=== PATIENT | female | born 1985 | race Caucasian/White ===

== ENCOUNTER 2017-02-12 19:42 | Emergency (ER) | payer OTHER ==
[2017-02-12 19:57] VITALS: BP 131/82
--- NOTE | 2017-02-12 20:57 | ED Physician Documentation ---
PD HPI UPPER EXT INJURY - Stated complaint Stated Complaint: RT ARM PX - Chief complaint Chief Complaint: Trauma Ext - History of Present Illness Location: Right, Arm Type of injury: Other (pushups) Where injury occurred: Home Timing - onset: How many days ago (4) Timing - details: Gradual onset, Now resolved Worsened by: Moving, Palpating Associated symptoms: Swelling. No: Weakness, Numbness Contributing factors: No: Anticoagulated, Prior ortho surgery, Prosthetic joint Similar symptoms before: Work up / diagnostics, Treatment Recently seen: Clinic - Additonal information Additional information: Patient is a 31 year old female with no significant past medical history who is presenting to the emergency department for left arm tenderness and swelling. paitent states that last week she was doing PT with the [employer] and developed swelling in her hand. patient states that her symptoms got better, but then came back after a run. Patient went to the clinic on buase who sent the patient to the emergency department. Upon my initial evaluation in the emergency department patient's symptoms had resolved and patient denied any complaints. Review of Systems Constitutional: denies: Fever, Chills Eyes: denies: Loss of vision, Photophobia Ears: denies: Ear pain, Drainage/discharge Nose: denies: Congestion, Epistaxis Throat: denies: Oral lesions / sores, Sore throat Cardiac: denies: Chest pain / pressure, Palpitations, Pedal edema Respiratory: denies: Cough, Wheezing GI: denies: Nausea, Vomiting Skin: denies: Rash, Lesions, Abrasion (s), Laceration (s) Musculoskeletal: reports: Extremity pain, Extremity swelling. denies: Neck pain Neurologic: denies: Generalized weakness, Focal weakness, Numbness Immunocompromised: denies: Immunocompromised PD PAST MEDICAL HISTORY - Past Medical History Past Medical History: No - Past Surgical History Past Surgical History: No - Present Medications Home Medications: Ambulatory Orders Medication Instructions Recorded Confirmed Dextroamphetamine/Amphetamine 20 mg PO DAILY 02/12/17 02/12/17 [Adderall 20 mg Tablet] - Allergies Allergies/Adverse Reactions: Allergies Allergy/AdvReac Type Severity Reaction Status Date / Time No Known Drug Allergies Allergy Verified 02/12/17 19:57 - Social History Does the pt smoke?: No Smoking Status: Never smoker Does the pt drink ETOH?: No Does the pt have substance abuse?: No - Immunizations Immunizations are current?: Yes PD ED PE NORMAL - Vitals Vital signs reviewed: Yes - General General: Alert and oriented X 3, No acute distress - HEENT HEENT: Atraumatic, PERRL - Neck Neck: Supple, no meningeal sign - Cardiac Cardiac: RRR, No murmur - Respiratory Respiratory: No respiratory distress - Abdomen Abdomen: Soft, Non tender, Non distended - Derm Derm: Normal color, Warm and dry - Extremities Extremities: No deformity, No tenderness to palpate, No edema - Neuro Neuro: Alert and oriented X 3, No motor deficit, No sensory deficit, Normal speech - Psych Psych: Normal mood, Normal affect Results - Vitals Vitals: Vital Signs - 24 hr 02/12/17 19:52 Temperature 36.8 C Heart Rate 82 Respiratory 18 Rate Blood Pressure 131/82 H O2 Saturation 100 Oxygen O2 Source Room air PD MEDICAL DECISION MAKING - ED course Complexity details: re-evaluated patient, considered differential, d/w patient ED course: Patient was seen and examined at bedside. patient was well appearing and in no distress. Patient required no imaging at this time. Patient had no signs or symptoms or risk factors for thromboembolism. Patient was stable for discharge with outpatient follow up. Departure - Departure Disposition: 01 Home, Self Care Clinical Impression: Bursitis of right elbow Condition: Good Instructions: ED Bursitis Elbow Olecranon Follow-Up: Vidal Irwin MD [Primary Care Provider] - As Needed Comments: It is difficult to say if your symptoms are due to a bursistis vs a tendonitis. Either way it is similar treatment. You will need to keep your arm elevated, use ice for pain and swelling and ibuprofen 600mg at a time. You can look into supportive braces. You should monitor for unilateral worsening or your symptoms. You should be able to return to regular duty. You may return to the emergency department at any time for new, worsening or uncontrollable symptoms. Discharge Date/Time: 02/12/17 21:10
== END 2017-02-12 21:10 | disposition home or self-care (01) ==
LOC: ED 19:42
DX: M70.31 Other bursitis of elbow, right elbow (principal); Y93.B2 Activity, push-ups, pull-ups, sit-ups
CPT/HCPCS: 99282; 99283

== ENCOUNTER 2020-03-12 05:39 | Emergency (ER) | payer OTHER ==
[2020-03-12] MEDS ORDERED: SODIUM CHLORIDE 0.9% 1,000 ML IV STA (05:52)
[2020-03-12] MEDS ORDERED: KETOROLAC 30 MG/ML VIAL IVP STA (05:52)
--- NOTE | 2020-03-12 05:55 | ED Physician Documentation ---
PD HPI ABD PAIN - Stated complaint Stated Complaint: FLANK PX - Chief complaint Chief Complaint: Abd Pain - History obtained from History obtained from: Patient, Family - History of Present Illness Timing - onset: Enter time (429), Today Timing - duration: Minutes Timing - details: Abrupt onset, Still present Quality: Sharp, Pain Location: RLQ Radiation: Right flank Improved by: Other (nothing) Worsened by: Other (nothing) Associated symptoms: Nausea. No: Vomiting Similar symptoms before: Has not had sx before Recently seen: Not recently seen - Additional information Additional information: Previously well 34-year-old female with a history of ADHD awoke at 4:30 in the morning with acute right flank pain. She had pain down into her pelvis on the right side radiating to the flank and there are no other modifying factors. When first question the patient stated that everything made the pain worse and then when questioned more closely -- it just hurts really bad. Abrupt in onset without prior illness. Review of Systems Constitutional: denies: Fever, Chills Eyes: denies: Decreased vision Ears: denies: Ear pain Nose: denies: Congestion Throat: denies: Sore throat Cardiac: denies: Chest pain / pressure, Palpitations Respiratory: denies: Dyspnea, Cough GI: reports: Abdominal Pain, Nausea : denies: Dysuria, Frequency Skin: denies: Rash Musculoskeletal: reports: Back pain. denies: Neck pain, Extremity pain Neurologic: denies: Generalized weakness, Focal weakness, Numbness PD PAST MEDICAL HISTORY - Past Medical History Past Medical History: No - Past Surgical History Past Surgical History: No - Present Medications Home Medications: Ambulatory Orders Medication Instructions Recorded Confirmed Dextroamphetamine/Amphetamine 20 mg PO DAILY 02/12/17 02/12/17 [Adderall 20 mg Tablet] Oxycodone HCl/Acetaminophen 1 - 2 each PO Q6H PRN #14 tablet 03/12/20 [Percocet 5-325 mg Tablet] - Allergies Allergies/Adverse Reactions: Allergies Allergy/AdvReac Type Severity Reaction Status Date / Time No Known Drug Allergies Allergy Verified 03/12/20 05:49 - Social History Does the pt smoke?: No Smoking Status: Never smoker Does the pt drink ETOH?: No Does the pt have substance abuse?: No - Immunizations Immunizations are current?: Yes - POLST Patient has POLST: No PD ED PE NORMAL - Vitals Vital signs reviewed: Yes (hypertensive) - General General: Alert and oriented X 3, Well developed/nourished, Other (34-year-old female writhing in pain) - HEENT HEENT: Atraumatic, PERRL, EOMI - Neck Neck: Supple, no meningeal sign, No bony TTP - Cardiac Cardiac: RRR, No murmur - Respiratory Respiratory: No respiratory distress, Clear bilaterally - Abdomen Abdomen: Normal bowel sounds, Soft, Non tender, Non distended, No organomegaly - Back Back: No CVA TTP, No spinal TTP - Derm Derm: Normal color, Warm and dry, No rash - Extremities Extremities: No deformity, No edema - Neuro Neuro: Alert and oriented X 3, visual effects editor 2-12 intact, No motor deficit, No sensory deficit, Normal speech Eye Opening: Spontaneous Motor: Obeys Commands Verbal: Oriented GCS Score: 15 - Psych Psych: Normal mood, Normal affect Results - Vitals Vitals: Vital Signs - 24 hr 03/12/20 03/12/20 03/12/20 05:48 06:30 07:03 Temperature 36.2 C L Heart Rate 71 71 70 Respiratory 22 18 18 Rate Blood Pressure 138/111 H 120/90 H 111/79 O2 Saturation 100 100 100 Oxygen O2 Source Room air - Labs Labs: Laboratory Tests 03/12/20 03/12/20 05:58 05:58 WBC 6.3 RBC 3.92 L Hgb 12.3 Hct 35.2 L MCV 89.8 MCH 31.4 H MCHC 34.9 RDW 12.5 Plt Count 229 MPV 9.8 Neut # (Auto) 2.5 Lymph # (Auto) 3.3 Dent # (Auto) 0.4 Eos # (Auto) 0.1 Baso # (Auto) 0.0 Absolute Nucleated RBC 0.00 Nucleated RBC % 0.0 Sodium 133 L Potassium 3.1 L Chloride 105 Carbon Dioxide 16 L Anion Gap 12.0 BUN 18 Creatinine 0.8 Estimated GFR (MDRD) 82 L Glucose 147 H Calcium 9.0 Total Bilirubin 0.8 AST 19 ALT 17 Alkaline Phosphatase 42 Total Protein 6.7 Albumin 4.0 Globulin 2.7 Albumin/Globulin Ratio 1.5 Lipase 25 Procedures - Bedside sono Bedside sono by EMP: With use of bedside ultrasound the right kidney is imaged it is sonographically nontender and there is evidence of hydronephrosis. PD MEDICAL DECISION MAKING - ED course Complexity details: reviewed old records, reviewed results, re-evaluated patient, considered differential, d/w patient, d/w family ED course: 34-year-old female with acute onset of severe flank pain at 4:30 in the morning appears to have ureteral lithiasis on initial evaluation. An IV is begun she is given 30 mg of Toradol intravenously and a liter of saline and a CT scan of the abdomen pelvis is undertaken. The CT scan shows a 3.5mm stone in the distal right ureter with minimal hydro. The patient did not get adequate relief with the tordal and required IV dilaudid with improvement. At shift change care is turned over to Dr. Galvin with urinalysis pending. Disposition has been processed and will be amended if needed. Departure - Departure Clinical Impression: Ureterolithiasis Condition: Stable Instructions: ED Stone Renal W Colic Follow-Up: FRANKLIN CATHERINE MD [Primary Care Provider] - Prescriptions: Oxycodone HCl/Acetaminophen [Percocet 5-325 mg Tablet] 1 - 2 each PO Q6H PRN #14 tablet PRN Reason: pain
[2020-03-12 06:03] LABS: BASOPHILS % (AUTO) 0.5 %; EOSINOPHILS # (AUTO) 0.1 10^3/uL (0.0-0.7); EOSINOPHILS % (AUTO) 1.4 %; HGB - HEMOGLOBIN 12.3 g/dL (12.0-16.0); LYMPHOCYTES # (AUTO) 3.3 10^3/uL (1.5-3.5); MEAN CORPUSCULAR HEMOGLOBIN 31.4 pg (27.0-31.0); MEAN CORPUSCULAR HGB CONC 34.9 g/dL (32.0-36.0); MEAN CORPUSCULAR VOLUME 89.8 fL (81.0-99.0); MEAN PLATELET VOLUME 9.8 fL (7.9-10.8); MONOCYTES # (AUTO) 0.4 10^3/uL (0.0-1.0); NEUTROPHILS # (AUTO) 2.5 10^3/uL (1.5-6.6); NEUTROPHILS % (AUTO) 39.8 %; PLT - PLATELET COUNT 229 10^3/uL (130-450); RED BLOOD COUNT 3.92 10^6/uL (4.20-5.40); RED CELL DISTRIBUTION WIDTH 12.5 % (12.0-15.0); WHITE BLOOD COUNT 6.3 x10^3/uL (4.8-10.8)
[2020-03-12 06:14] LABS: ALBUMIN/GLOBULIN RATIO 1.5 (1.0-2.2); BILIRUBIN,TOTAL 0.8 mg/dL (0.2-1.0); CREATININE 0.8 mg/dL (0.4-1.0); TOTAL PROTEIN 6.7 g/dL (6.7-8.2)
[2020-03-12] MEDS ORDERED: HYDROmorphone 1 MG/ML CARPUJECT IVP STA ×2 (06:22→08:03)
[2020-03-12] MEDS ORDERED: ONDANSETRON 4 MG/2 ML VIAL IVP STA (06:22)
[2020-03-12] MEDS ORDERED: POTASSIUM CHLORIDE 20 MEQ TABLET PO STA (06:30)
[2020-03-12 07:24] LABS: BILIRUBIN,URINE NEGATIVE (NEGATIVE); GLUCOSE, URINE (UA) NEGATIVE (NEGATIVE); KETONES,URINE (UA) >=80 mg/dL (NEGATIVE); LEUKOCYTE ESTERASE, URINE NEGATIVE (NEGATIVE); NITRITE,URINE NEGATIVE (NEGATIVE); OCCULT BLOOD,URINE TRACE-LYSE (NEGATIVE); PH,URINE 5.5 PH (5.0-7.5); PROTEIN,URINE NEGATIVE (NEGATIVE); UROBILINOGEN,URINE 0.2 (NORMAL) E.U./dL (NORMAL)
[2020-03-12 07:40] LABS: CLARITY,URINE CLEAR (CLEAR)
[2020-03-12 07:44] LABS: HCG UR QUAL NEGATIVE
[2020-03-12 08:14] VITALS: BP 125/79
--- NOTE | 2020-03-12 08:49 | CT Report ---
PROCEDURE: Abdomen/Pelvis WO INDICATIONS: looks like a stone on the right side TECHNIQUE: Noncontrast 5 mm thick sections acquired from the diaphragms to the symphysis. 5 mm coronal and sagi ttal reformats were then performed. For radiation dose reduction, the following was used: automated exposure control, adjustment of mA and/or kV according to patient size. COMPARISON: None. FINDINGS: Image quality: Excellent. ABDOMEN: Lung bases: Lung bases are clear. Heart size is normal. Solid organs: Liver and spleen are normal in size. Gallbladder wall does not appear thickened. P ancreas is normal in contours. No adrenal nodules. There is a 4 mm stone seen obstructing at the right ureterovesicular junction. There is associated mi ld to moderate right-sided hydroureter and hydronephrosis. Minimal right-sided perinephric fat strand ing is seen. The kidneys demonstrate normal size. No nonobstructing kidney stones are seen. No left-s ided hydronephrosis is seen. Peritoneum and bowel: There is a moderate amount of stool seen within the colon. Forming stool can al so be seen within the distal small bowel. Fluid-filled small bowel loops are prominent and measure up to 2.8 cm, which are not frankly dilated. No free air or significant free fluid can be seen. Nodes and vessels: No retroperitoneal or mesenteric adenopathy by size criteria. Aorta and inferior vena cava are normal in caliber. Miscellaneous: No ventral hernias. Incidental note is made of body ornamentation artifact. PELVIS: Genitourinary: Bladder wall thickness is normal. The uterus demonstrates an unremarkable appearance for age. No adnexal masses are seen. A presumed contraceptive ring can be seen at the vaginal apex. Miscellaneous: No inguinal hernias or adenopathy. Bones: No suspicious bony lesions. No vertebral body compression fractures. IMPRESSION: There is a 4 mm obstructing stone seen at the right ureterovesicular junction, with associated right- sided hydroureter and hydronephrosis. Minimal perinephric fat stranding is also seen. There is a moderate amount of stool seen within the colon. Please correlate with clinical constipatio n. There is also forming stool seen within the distal small bowel, which is suggestive of sluggish s mall bowel contents. Prominent (yet not frankly dilated) of some fluid-filled small bowel can be seen. This is most likely related to ileus. Incidental note is made of: Presumed contraceptive ring seen at the vaginal apex Note: No significant discrepancy from the preliminary report. Reviewed by: Negro Vasquez MD on 03/12/2020 7:47 AM DEN Approved by: Negro Vasquez MD on 03/12/2020 7:47 AM DEN Station ID: [id number]
== END 2020-03-12 08:15 | disposition home or self-care (01) ==
LOC: ED 05:39
DX: N13.2 Hydronephrosis with renal and ureteral calculous obstruction (principal)
CPT/HCPCS: 36415; 74176; 80053; 81003; 81025; 83690; 85025; 96361; 96374; 96375; 96376; 99284; A9270; J1170; 81001; 87086

== ENCOUNTER 2022-04-27 11:28 | Outpatient (CLI) | payer OTHER ==
--- NOTE | 2022-04-28 21:09 | MRI Report ---
PROCEDURE: LUMBAR SPINE WO INDICATIONS: RADICULOPATHY TECHNIQUE: Noncontrast sagittal T1 spin echo and T2 fast echo, sagittal STIR, axial T1 and T2 fast spin echo thr ough the lumbar spine. In cases with scoliosis, additional coronal T2 fast spin echo may be performe d. COMPARISON: None. FINDINGS: Image quality: Excellent. Alignment and Curvature: There is normal bony alignment. Bone Marrow: Marrow is of normal overall signal. No acute vertebral body compression fractures. Ea rly degenerative facet changes are present L3-L4, L4-L5, and L5-S1 without associated marrow edema or subchondral cystic change. Spinal Cord: Conus medullaris terminates at the normal level. Visualized cord demonstrates normal s ignal and size. No spinal canal or neural foraminal narrowing. Regional Soft Tissues: No paravertebral masses. IMPRESSION: Early degenerative facet degenerative changes from L3-L4 through L5-S1. Otherwise unremarkable MRI of the lumbar spine. No spinal canal stenosis, neural foraminal stenosis, or evidence of focal nerve root impingement. Reviewed by: Binu Morin MD on 04/28/2022 9:07 PM PDT Approved by: Binu Morin MD on 04/28/2022 9:07 PM PDT Station ID: [id number]
== END 2022-04-27 11:29 | disposition home or self-care (01) ==
LOC: DI 11:28
PROVIDERS: ATTEND Student in an Organized Health Care Education/Training Program
DX: M47.26 Other spondylosis with radiculopathy, lumbar region (principal); M47.27 Other spondylosis with radiculopathy, lumbosacral region

== ENCOUNTER 2022-10-03 17:30 | Outpatient (CLI) | payer OTHER ==
--- NOTE | 2022-10-04 10:16 | MRI Report ---
PROCEDURE: HIP WO - RT INDICATIONS: RIGHT HIP AND LOW BACK PAIN TECHNIQUE: Noncontrast coronal T1 spin echo and STIR through the bony pelvis. Coronal and axial T2 fast spin ec ho with fat saturation, sagittal T1 spin echo, and oblique axial T2 fast spin echo with fat saturatio n through the hip. COMPARISON: None. FINDINGS: Image quality: Excellent. Bones and joints: Bone marrow of the pelvic ring and proximal femurs show normal signal throughout. No intraosseous lesions or fractures. No avascular necrosis of the femoral heads. The visualized l ower lumbar spine appears normally aligned. Tendons: The gluteus medius and minimus tendons appear intact, without associated muscle atrophy. T here is a small amount of high T2 signal intensity adjacent the femoral insertion site of the right g luteus medius and minimus tendons. The iliopsoas tendon appears intact, without adjacent bursal fluid collections. The origin of the hamstring tendon is intact at the ischial tuberosity. Labrum and cartilage: The acetabular labrum appears intact in the absence of intra-articular contras t. Cartilage surface of the femoral head appears of normal thickness. The alpha angle of the femur is within normal limits at less than 55 degrees. Soft tissues: Visualized muscles demonstrate normal bulk and internal signal. The proximal sciatic neurovascular bundle appears normal adjacent to the hamstring tendons. No free pelvic fluid. Bladde r wall thickness is normal. Genitourinary structures and bowel loops appear normal where visualized. IMPRESSION: 1. Mild insertional tendinitis of the right gluteus medius and minimus tendons. Reviewed by: Ren Joyner MD on 10/04/2022 10:15 AM PDT Approved by: Ren Joyner MD on 10/04/2022 10:15 AM PDT Station ID: [id number]
== END 2022-10-03 17:31 | disposition home or self-care (01) ==
LOC: DI 17:30
DX: M54.50 Low back pain, unspecified (principal); M76.01 Gluteal tendinitis, right hip